=== PATIENT | male | born 1955 | race Caucasian/White ===

== ENCOUNTER 2018-10-04 12:14 | Emergency (ER) | payer MEDICARE, MEDICAID ==
[2018-10-04] MEDS ORDERED: NS 1,000 ML IV ONE ×2 (12:30→15:00)
[2018-10-04 12:56] LABS: VENOUS BASE EXCESS -1.5 (-2.0-2.0); VENOUS HCO3 23.9 MEQ/L (23.0-27.0); VENOUS O2 SATURATION 69.3 % (60.0-80.0); VENOUS PARTIAL PRESSURE CO2 42.5 mmHg (38.0-50.0); VENOUS PARTIAL PRESSURE O2 35.4 mmHg (30.0-50.0); VENOUS PH 7.367 UNITS (7.330-7.430); VENOUS STANDARD HCO3 22.4 MEQ/L; VENOUS TOTAL CO2 25.2 MEQ/L (24.0-28.0)
[2018-10-04 12:59] LABS: BASO % 0.5 % (0.0-1.0); EOS # 0.1 10^3/uL (0.0-0.50); EOS % 0.8 % (0.0-3.0); HEMATOCRIT 45.1 % (42.0-52.0); LYMPH # 1.6 10^3/uL (1.5-4.5); MEAN CORPUSCULAR HEMOGLOBIN 31.6 pg (27.0-33.0); MEAN CORPUSCULAR HGB CONC 35.5 g/dl (32.0-36.5); MEAN CORPUSCULAR VOLUME 89.1 fl (80.0-96.0); MONO # 0.6 10^3/uL (0.0-0.8); MONO % 7.8 % (0.0-5.0); NEUTROPHILS % 67.4 % (36.0-66.0); PLATELET COUNT, AUTOMATED 130 10^3/uL (150-450); RED BLOOD COUNT 5.06 10^6/uL (4.30-6.10); WHITE BLOOD COUNT 7.4 10^3/uL (4.0-10.0)
[2018-10-04 13:28] LABS: HEMOGLOBIN A1c 13.4 %
[2018-10-04 13:32] LABS: OSMOLALITY SERUM 300 MOSM/KG (280-301)
[2018-10-04 13:34] LABS: ACETONE/KETONE 9.05 MG/DL (<2.81); ALBUMIN 3.5 GM/DL (3.2-5.2); ALT/SGPT 21 U/L (12-78); BILIRUBIN,DIRECT 0.2 MG/DL (0.0-0.2); BILIRUBIN,TOTAL 0.7 MG/DL (0.2-1.0); CK-MB VALUE MASS 6.6 NG/ML (<3.6); CPK CREATINE PHOSPHOKINASE 77 U/L (39-308); MB/CK RELATIVE INDEX 8.57 (< OR =4); TOTAL PROTEIN 6.7 GM/DL (6.4-8.2); TROPONIN I < 0.02 NG/ML (< 0.10)
[2018-10-04 13:52] LABS: BLOOD UREA NITROGEN 13 MG/DL (7-18); CALCIUM LEVEL 8.5 MG/DL (8.8-10.2); CARBON DIOXIDE LEVEL 25 MEQ/L (21-32); CHLORIDE LEVEL 99 MEQ/L (98-107); CREATININE FOR GFR 0.85 MG/DL (0.70-1.30); GLOMERULAR FILTRATION RATE > 60.0 (>49); GLUCOSE, FASTING 496 MG/DL (70-100); POTASSIUM SERUM 4.9 MEQ/L (3.5-5.1); SODIUM LEVEL 131 MEQ/L (136-145)
[2018-10-04] MEDS ORDERED: HumaLOG INSULIN (NovoLOG) PER UNIT SC ONE (15:00)
[2018-10-04] MEDS ORDERED: HumaLOG INSULIN (NovoLOG) PER UNIT SC STA (15:40)
[2018-10-04] MEDS ORDERED: BASA100I SC (15:44)
[2018-10-04] MEDS ORDERED: LEVEMIR (INSULIN DETEMIR) 1 UNITS/0.01ML SC ONE (15:45)
[2018-10-04 17:00] VITALS: BP 156/87
[2018-10-04] MEDS ORDERED: GLIP10TA PO (17:54)
[2018-10-04] MEDS ORDERED: METF500T13 PO (17:54)
[2018-10-04] MEDS ORDERED: AMLO25TA PO (17:54)
[2018-10-04] MEDS ORDERED: LOSA25TA14 PO (17:54)
--- NOTE | 2018-10-04 20:39 | ECGEPIP ---
[facility] - ED Test Date: 2018-10-04 Pat Name: MAXIMUS RODRIGUEZ Department: Room: - Gender: Male [place] Department Operator: KEESHA : 1955 Requested By: DAE Wilcox Order Number: [id number] Reading MD: Rafi Griffiths Measurements Intervals [place] Rate: 79 P: 5 [place]: 242 QRS: QRSD: 91 T: 38 QT: 371 QTc: 425 Interpretive Statements SINUS RHYTHM WITH FIRST DEGREE AV BLOCK INFERIOR MYOCARDIAL INFARCTION, OF INDETERMINATE AGE WITH POSTERIOR EXTENSION NO PRIORS FOR COMPARISON Electronically Signed on 10-04-2018 20:39:37 EDT by Rafi Griffiths
== END 2018-10-04 17:56 | disposition home or self-care (01) ==
LOC: EDBD 12:14 → M ED 12:14
DX: E11.65 Type 2 diabetes mellitus with hyperglycemia (principal); I44.0 Atrioventricular block, first degree; I25.10 Atherosclerotic heart disease of native coronary artery without angina pectoris; I10 Essential (primary) hypertension; M54.5 Low back pain; M51.86 Other intervertebral disc disorders, lumbar region; Z85.828 Personal history of other malignant neoplasm of skin; Z79.4 Long term (current) use of insulin; Z79.899 Other long term (current) drug therapy; Z88.1 Allergy status to other antibiotic agents

== ENCOUNTER → 2024-12-31 | Outpatient (CLI) | payer MEDICARE, MEDICAID ==
[~2024-12-31] MED LIST: AMLO25TA PO; BASA100I SC; GLIP10TA PO; LOSA25TA13 PO; METF500T13 PO
== END ==
LOC: M PLAIMG 13:36
PROVIDERS: ATTEND Family Medicine
DX: D48.7 Neoplasm of uncertain behavior of other specified sites (principal)